=== PATIENT | female | born 1985 | race Asian ===

== ENCOUNTER 2019-03-30 10:54 | Emergency (ER) | payer BC ==
[~2019-03-30] VITALS: Ht 162 cm; Wt 63.6 kg
[2019-03-30] MEDS ORDERED: LACTATED RINGERS 1,000 ML IV ONE ×2 (11:19→12:20)
[2019-03-30] MEDS ORDERED: ONDANSETRON 4 MG/2 ML (SDV) Z0FRAN IVP ONE (11:30)
[2019-03-30 11:46] LABS: BASOPHILS % (AUTO) 0 % (0-10); EOSINOPHILS % (AUTO) 0 % (0-10); HEMATOCRIT 37 % (35-52); HEMOGLOBIN 11.8 G/DL (11.5-16.0); LYMPHOCYTES # (AUTO) 1.4 X 10^3 (1.0-4.0); LYMPHOCYTES % (AUTO) 25 % (12-44); MEAN CORPUSCULAR HEMOGLOBIN 22 PG (25-34); MEAN CORPUSCULAR HGB CONC 32 G/DL (32-36); MEAN CORPUSCULAR VOLUME 68 FL (80-99); MEAN PLATELET VOLUME 11.9 FL (7.4-10.4); MONOCYTES # (AUTO) 0.5 X 10^3 (0.0-1.0); MONOCYTES % (AUTO) 9 % (0-12); NEUTROPHILS # (AUTO) 3.6 X 10^3 (1.8-7.8); NEUTROPHILS % (AUTO) 65 % (42-75); PLATELET COUNT 222 10^3/uL (130-400); RED CELL DISTRIBUTION WIDTH 18.2 % (10.0-14.5); WHITE BLOOD COUNT 5.5 10^3/uL (4.3-11.0)
[2019-03-30 11:51] LABS: BILIRUBIN,URINE NEGATIVE (NEGATIVE); CLARITY,URINE CLEAR; COLOR,URINE BROWN; GLUCOSE, URINE (UA) NEGATIVE (NEGATIVE); KETONES,URINE NEGATIVE (NEGATIVE); LEUKOCYTE ESTERASE ,URINE NEGATIVE (NEGATIVE); NITRITE,URINE NEGATIVE (NEGATIVE); PH,URINE 6.5 (5-9); PROTEIN,URINE 2+ (NEGATIVE)
[2019-03-30 11:53] LABS: INR 0.9 (0.8-1.4); PROTHROMBIN TIME PATIENT 12.9 SEC (12.2-14.7)
[2019-03-30 12:02] LABS: BACTERIA,URINE FEW /HPF; RBC,URINE TNTC /HPF
[2019-03-30 12:03] LABS: ALANINE AMINOTRANSFERASE 12 U/L (0-55); ALBUMIN 3.8 GM/DL (3.2-4.5); ALKALINE PHOSPHATASE 30 U/L (40-136); AMYLASE 53 U/L (25-125); BILIRUBIN,TOTAL 0.2 MG/DL (0.1-1.0); BUN/CREATININE RATIO 10; CALCIUM 8.5 MG/DL (8.5-10.1); CARBON DIOXIDE 23 MMOL/L (21-32); CHLORIDE 107 MMOL/L (98-107); CREATININE SERUM 0.77 MG/DL (0.60-1.30); GFR ESTIMATED > 60; GLUCOSE 93 MG/DL (70-105); LIPASE 33 U/L (8-78); POTASSIUM 3.8 MMOL/L (3.6-5.0); SODIUM 140 MMOL/L (135-145); TOTAL PROTEIN 7.3 GM/DL (6.4-8.2)
[2019-03-30 12:22] LABS: TSH (THYROID ANALYZER) 2.19 UIU/ML (0.35-4.94)
--- NOTE | 2019-03-30 12:26 | ED General ---
General Chief Complaint: General Problems/Pain Stated Complaint: WEAKNESS Nursing Triage Note: PT PRESENTS TO ED ACCOMPANIED BY WITH COMPLAINTS OF SYNCOPAL EPISODE AND GENERALIZED WEAKNESS THIS AM. PT WENT TO [facility] AND TESTED POSITIVE FOR FLU LAST THURSDAY. Nursing Sepsis Screen: No Definite Risk Source of Information: Spouse (/MALE S.O. DOES ALL TALKING FOR PT) History of Present Illness Date Seen by Provider: Mar 30, 2019 Time Seen by Provider: 11:14 Initial Comments PT ARRIVES VIA POV FROM HOME PT STARTED GETTING SICK ON Thursday03/25/19 WITH FLU SYMPTOMS--COUGH, CONGESTION, FEVER, WEAKNESS, DECREASED APPETITE ( DAUGHTER HAD BEEN SICK WITH THE SAME SYMPTOMS A FEW DAYS BEFORE PT BEGAN GETTING SICK ) WT WAS SEEN AT [facility] ON THURSDAY FOR THIS PROBLEM AND TESTED + FOR INFLUENZA. NO RX GIVEN PT WAS OUTSIDE TREATMENT WINDOW OF 48 HOURS PT HAS HAD CONTINUED WEAKNESS, AND STATES SHE "PASSED OUT" THIS AM FOR "2-3 MINUTES" --HE CAUGHT HER AND PT HAD NO INJURIES PT STATES SHE GETS DIZZY IF SHE STANDS MORE THAN ABOUT 10 MINUTES. NO VOMITING OR DIARRHEA PT HAS HAD DECREASED INTAKE ALL WEEK--HAD JESS SOUP AND RICE YESTERDAY ONCE YESTERDAY. TODAY, SHE HAD A SIP OF WATER AND ONE SLICE OF AVOCADO PT STARTED HER MENSTRUAL CYCLE TODAY C/O ABDOMINAL PAIN AND CRAMPING SINCE STARTING MENSES TOOK 1 ADVIL THIS AM FOR ABDOMINAL CRAMPING. PCP: [facility] Allergies and Home Medications Allergies Coded Allergies: No Known Drug Allergies (Unverified , 03/30/19) Patient Home Medication List Home Medication List Reviewed: Yes Review of Systems Review of Systems Constitutional: see HPI, dizziness, fever, malaise, weakness EENTM: see HPI, nose congestion Respiratory: see HPI, cough; No short of breath, No wheezing Cardiovascular: No chest pain, No edema, No palpitations; syncope Gastrointestinal: see HPI, abdominal pain, loss of appetite Genitourinary: see HPI; No dysuria Musculoskeletal: other (BODY ACHES) Skin: no symptoms reported Psychiatric/Neurological: See HPI Hematologic/Lymphatic: No Symptoms Reported Immunological/Allergic: no symptoms reported Past Ginempd-Jrmvsk-Afgvez Hx Patient Social History Alcohol Use: Denies Use Recreational Drug Use: No Smoking Status: Never a Smoker Recent Foreign Travel: No Contact w/Someone Who Travel: No Recent Infectious Disease Expo: No Recent Hopitalizations: No Physical Abuse: No Sexual Abuse: No Mistreated: No Fear: No Seasonal Allergies Seasonal Allergies: No Past Medical History Surgeries: Yes ( X 1) Section Respiratory: No Cardiac: No Neurological: No : No Reproductive Disorders: No Genitourinary: No Gastrointestinal: No Musculoskeletal: No Endocrine: No HEENT: No Cancer: No Psychosocial: No Integumentary: No Blood Disorders: No Physical Exam Vital Signs Vital Signs - First Documented 03/30/19 11:11 Temp 37.2 Pulse 67 Resp 20 B/P (MAP) 104/69 (81) Pulse Ox 99 Capillary Refill : Less Than 3 Seconds Height, Weight, BMI Height: '" Weight: lbs. oz. kg; 24.00 BMI Method: General Appearance: No Apparent Distress, WD/WN, Other HEENT: PERRL/EOMI, TMs Normal, Normal ENT Inspection, Pharynx Normal Neck: Full Range of Motion, Normal Inspection, Non Tender, Supple Respiratory: Normal Breath Sounds, No Accessory Muscle Use, No Respiratory Distress Cardiovascular: Regular Rate, Rhythm, No Edema, No JVD, No Murmur, Normal Peripheral Pulses Gastrointestinal: Normal Bowel Sounds, No Organomegaly, No Pulsatile Mass, Soft Back: Normal Inspection, No CVA Tenderness Extremity: Normal Capillary Refill, Normal Inspection, No Pedal Edema Neurologic/Psychiatric: Alert, Oriented x3, No Motor/Sensory Deficits, cable maintainer II- XII Norm as Tested Skin: Normal Color (PT IS DARK SKINNED), Warm/Dry; No Rash Progress/Results/Core Measures Suspected Sepsis Recent Fever Within 48 Hours: Yes Infection Criteria Present: Documented Infection New/Unexplained Altered Menta: No Sepsis Screen: No Definite Risk SIRS Temperature: Pulse: 67 Respiratory Rate: 20 Laboratory Tests 03/30/19 11:25: White Blood Count 5.5 Blood Pressure 104 /69 Mean: 81 Laboratory Tests 03/30/19 11:25: Creatinine 0.77, INR Comment 0.9, Platelet Count 222, Total Bilirubin 0.2 Results/Orders Lab Results Laboratory Tests Test 03/30/19 11:25 03/30/19 11:47 Range/Units White Blood Count 5.5 4.3-11.0 10^3/uL Red Blood Count 5.35 4.35-5.85 10^6/uL Hemoglobin 11.8 11.5-16.0 G/DL Hematocrit 37 35-52 % Mean Corpuscular Volume 68 L 80-99 FL Mean Corpuscular Hemoglobin 22 L 25-34 PG Mean Corpuscular Hemoglobin Concent 32 32-36 G/DL Red Cell Distribution Width 18.2 H 10.0-14.5 % Platelet Count 222 130-400 10^3/uL Mean Platelet Volume 11.9 H 7.4-10.4 FL Neutrophils (%) (Auto) 65 42-75 % Lymphocytes (%) (Auto) 25 12-44 % Monocytes (%) (Auto) 9 0-12 % Eosinophils (%) (Auto) 0 0-10 % Basophils (%) (Auto) 0 0-10 % Neutrophils # (Auto) 3.6 1.8-7.8 X 10^3 Lymphocytes # (Auto) 1.4 1.0-4.0 X 10^3 Monocytes # (Auto) 0.5 0.0-1.0 X 10^3 Eosinophils # (Auto) 0.0 0.0-0.3 10^3/uL Basophils # (Auto) 0.0 0.0-0.1 10^3/uL Prothrombin Time 12.9 12.2-14.7 SEC INR Comment 0.9 0.8-1.4 Activated Partial Thromboplast Time 25 24-35 SEC Sodium Level 140 135-145 MMOL/L Potassium Level 3.8 3.6-5.0 MMOL/L Chloride Level 107 98-107 MMOL/L Carbon Dioxide Level 23 21-32 MMOL/L Anion Gap 10 5-14 MMOL/L Blood Urea Nitrogen 8 7-18 MG/DL Creatinine 0.77 0.60-1.30 MG/DL Estimat Glomerular Filtration Rate > 60 BUN/Creatinine Ratio 10 Glucose Level 93 70-105 MG/DL Calcium Level 8.5 8.5-10.1 MG/DL Corrected Calcium 8.7 8.5-10.1 MG/DL Magnesium Level 2.0 1.6-2.4 MG/DL Total Bilirubin 0.2 0.1-1.0 MG/DL Aspartate Amino Transf (AST/SGOT) 23 5-34 U/L Alanine Aminotransferase (ALT/SGPT) 12 0-55 U/L Alkaline Phosphatase 30 L 40-136 U/L Total Protein 7.3 6.4-8.2 GM/DL Albumin 3.8 3.2-4.5 GM/DL Amylase Level 53 25-125 U/L Lipase 33 8-78 U/L TSH [place] Testing 2.19 0.35-4.94 UIU/ML Serum Test, Qualitative NEGATIVE NEGATIVE Urine Color BROWN H Urine Clarity CLEAR Urine pH 6.5 5-9 Urine Specific [place] 1.020 1.016-1.022 Urine Protein 2+ H NEGATIVE Urine Glucose (UA) NEGATIVE NEGATIVE Urine Ketones NEGATIVE NEGATIVE Urine Nitrite NEGATIVE NEGATIVE Urine Bilirubin NEGATIVE NEGATIVE Urine Urobilinogen 0.2 < = 1.0 MG/DL Urine Leukocyte Esterase NEGATIVE NEGATIVE Urine RBC (Auto) 3+ H NEGATIVE Urine RBC TNTC H /HPF Urine WBC 2-5 /HPF Urine Squamous Epithelial Cells 2-5 /HPF Urine Crystals NONE /LPF Urine Bacteria FEW H /HPF Urine Casts NONE /LPF Urine Mucus SMALL H /LPF Urine Culture Indicated YES My Orders Orders - ANY HANSEN DO Ed Iv/Invasive Line Start (03/30/19 11:19) Urine Bedside (03/30/19 11:19) Monitor-Rhythm Ecg Trace Only (03/30/19 11:19) Amylase (03/30/19 11:19) Cbc With Automated Diff (03/30/19 11:19) Comprehensive Metabolic Panel (03/30/19 11:19) Hcg,Qualitative Serum (03/30/19 11:19) Lipase (03/30/19 11:19) Magnesium (03/30/19 11:19) Protime With Inr (03/30/19 11:19) Partial Thromboplastin Time (03/30/19 11:19) Thyroid Analyzer (03/30/19 11:19) Ua Culture If Indicated (03/30/19 11:19) Blood Culture (03/30/19 11:19) Ondansetron Injection (Zofran Injectio (03/30/19 11:30) Ed Iv/Invasive Line Start (03/30/19 11:19) Lactated Ringers (Lr 1000 Ml Iv Solution (03/30/19 11:19) Orthostatic Vital Signs (Adult (03/30/19 11:19) Urine Culture (03/30/19 11:47) Ed Iv/Invasive Line Start (03/30/19 12:20) Lactated Ringers (Lr 1000 Ml Iv Solution (03/30/19 12:20) Medications Given in ED Current Medications Medications Dose Ordered Sig/Matti Route Start Time Stop Time Status Last Admin Dose Admin Lactated Ringer's 1,000 ml @ 0 mls/hr Q0M ONCE IV 03/30/19 11:19 03/30/19 11:22 DC 03/30/19 11:31 0 MLS/HR Lactated Ringer's 1,000 ml @ 0 mls/hr Q0M ONCE IV 03/30/19 12:20 03/30/19 12:21 DC 03/30/19 12:33 0 MLS/HR Ondansetron HCl 4 mg ONCE ONCE IVP 03/30/19 11:30 03/30/19 11:31 DC 03/30/19 11:31 4 MG Vital Signs/I&O 03/30/19 03/30/19 03/30/19 11:11 13:45 14:15 Temp 37.2 36.7 Pulse 67 57 59 75 77 Resp 20 20 B/P (MAP) 104/69 (81) 97/62 (74) 93/63 95/64 (74) 94/64 (74) Pulse Ox 99 99 Capillary Refill : Less Than 3 Seconds Blood Pressure Mean: 81 Progress Note : Progress Note GIVEN IV FLUIDS--STATES SHE FEELS MUCH BETTER PT IS ABLE TO AMBULATE TO AND FROM BATHROOM ON HER OWN, WITHOUT DIFFICULTY. Departure Impression Primary Impression: Influenza Additional Impressions: Generalized weakness Volume depletion Disposition: 01 HOME, SELF-CARE Condition: Stable Departure-Patient Inst. Referrals: [facility] Patient Instructions: Flu, Adult (DC), Generalized Weakness (DC) Add. Discharge Instructions: LOTS OF CLEAR LIQUIDS--WATER, BROTH, JELLO, GATORADE BLAND DIET TYLENOL 1 GRAM / MOTRIN 800 MG 4 TIMES A DAY NEEDED FOR PAIN OR FEVER OVER THE COUNTER MEDICATIONS FOR COUGH AND CONGESTION All discharge instructions reviewed with patient and/or family. Voiced understanding. ANY HANSEN DO Mar 30, 2019 12:26
[2019-03-30 13:45] VITALS: BP_SYST 94; BP_SYST 95; BP_SYST 97; BP_DIAS 62; BP_DIAS 64
[2019-03-30 14:15] VITALS: BP 93/63
== END 2019-03-30 14:14 | disposition home or self-care (01) ==
LOC: ER 10:55
DX: J11.1 Influenza due to unidentified influenza virus with other respiratory manifestations (principal); E86.9 Volume depletion, unspecified
CPT/HCPCS: 36415; 80053; 81000; 82150; 83690; 83735; 84443; 84703; 85025; 85610; 85730; 87040; 87088; 93041

== ENCOUNTER → 2021-03-04 | Outpatient (CLI) | payer BC, OTHER ==
--- NOTE | 2021-03-04 13:31 | Diagnostic Imaging Report ---
INDICATION: survey. TECHNIQUE: Multiple real-time grayscale images were obtained over the gravid uterus. COMPARISON: None FINDINGS: There is a single live fetus in a breech presentation. heart rate was recorded at 149 bpm. Placenta is posterior and low lying. Amniotic fluid volume is normal. Cervix is 5 cm in length. kidneys, bladder and stomach are unremarkable. brain is unremarkable. There is a four-chamber heart. There is a three-vessel cord with normal insertion. spine is unremarkable. Biometrical measurements are as follows: Biparietal 5.29 cm, age 22 weeks 1 days. Head circumference 20.47 cm, age 22 weeks 5 days. Abdominal circumference 17.77 cm, age 22 weeks 5 days. Femur length 3.99 cm, age 23 weeks 0 days. Sonographic estimate age: 22 weeks 5 days. Sonographic estimated date of delivery: 07/03/2021. Estimated Weight: 527 gm (+/- 77 gm). LMP percentile: 29%. heart rate: 149 beats per minute. number: 1 of 1. IMPRESSION: Single live IUP 22 weeks 5 days gestational age. Estimated date of confinement sonographically is 07/03/2021. Dictated by: Dictated on workstation # [id number]
== END ==
LOC: RAD 12:00
PROVIDERS: ATTEND Obstetrics & Gynecology
DX: Z34.82 Encounter for supervision of other normal pregnancy, second trimester (principal); Z3A.22 22 weeks gestation of pregnancy
CPT/HCPCS: 76805

== ENCOUNTER → 2021-04-09 | Outpatient (CLI) | payer OTHER ==
--- NOTE | 2021-04-09 15:11 | Diagnostic Imaging Report ---
INDICATION: Followup low-lying placenta. TECHNIQUE: Multiple Real-time grayscale images were obtained over the gravid uterus. COMPARISON: 03/04/2021. FINDINGS: There is a single live fetus in a cephalic presentation. The heart rate was recorded at 179 BPM. The placenta is posterior. The placenta is no longer low lying in position with a placental tip to the cervix measurement of 4 cm. The cervical length is 4.5 cm. The amniotic fluid volume appears normal. IMPRESSION: No evidence of a low-lying placenta or placenta previa. Dictated by: Dictated on workstation # [id number]
== END ==
LOC: RAD 13:54
PROVIDERS: ATTEND Obstetrics & Gynecology
DX: O44.42 Low lying placenta NOS or without hemorrhage, second trimester (principal); Z3A.00 Weeks of gestation of pregnancy not specified
CPT/HCPCS: 76816

== ENCOUNTER → 2021-05-31 | Outpatient (CLI) | payer OTHER ==
--- NOTE | 2021-05-31 16:57 | Diagnostic Imaging Report ---
INDICATION: Evaluate growth, fluid volume and presentation. TECHNIQUE: Multiple real-time grayscale images were obtained over the gravid uterus. COMPARISON: 03/04/2021. FINDINGS: There is a single live fetus in a transverse presentation with head to the maternal left. Heart rate was recorded at 144 BPM. Placenta is posterior. Amniotic fluid index is 16.8 cm. Cervical length is 4 cm. Biometrical measurements are as follows: Biparietal 8.50 cm, age 34 weeks 2 days. Head circumference 32.73 cm, age 37 weeks 2 days. Abdominal circumference 32.40 cm, age 36 weeks 3 days. Femur length 6.73 cm, age 34 weeks 5 days. Sonographic estimate age: 35 weeks 5 days. Sonographic estimated date of delivery: 06/30/2021. Estimated Weight: 2755 gm (+/- 403 gm). LMP percentile: 51%. heart rate: 144 beats per minute. number: 1 of 1. IMPRESSION: Single live IUP at 35 to 36 weeks gestational age demonstrating normal interval growth when compared with prior exam. No complicating features are detected. Dictated by: Dictated on workstation # [id number]
== END ==
LOC: RAD 13:00
PROVIDERS: ATTEND Obstetrics & Gynecology
DX: O32.9XX9 Maternal care for malpresentation of fetus, unspecified, other fetus (principal); Z3A.35 35 weeks gestation of pregnancy
CPT/HCPCS: 76805

== ENCOUNTER 2021-06-12 06:55 | Outpatient (CLI) | payer OTHER ==
[~2021-06-12] VITALS: Ht 63 cm; Wt 66.0 kg
[2021-06-12 07:15] VITALS: BP 106/58
[2021-06-12 07:30] VITALS: BP 106/58
[2021-06-12 08:01] LABS: BASOPHILS # (AUTO) 0.1 10^3/uL (0.0-0.1); BASOPHILS % (AUTO) 1 % (0-10); EOSINOPHILS # (AUTO) 0.1 10^3/uL (0.0-0.3); EOSINOPHILS % (AUTO) 1 % (0-10); HEMATOCRIT 40 % (35-52); HEMOGLOBIN 12.8 g/dL (11.5-16.0); LYMPHOCYTES # (AUTO) 2.5 10^3/uL (1.0-4.0); LYMPHOCYTES % (AUTO) 19 % (12-44); MEAN CORPUSCULAR HEMOGLOBIN 24 pg (25-34); MEAN CORPUSCULAR HGB CONC 32 g/dL (32-36); MEAN CORPUSCULAR VOLUME 75 fL (80-99); MEAN PLATELET VOLUME 10.1 fL (9.0-12.2); MONOCYTES # (AUTO) 0.7 10^3/uL (0.0-1.0); MONOCYTES % (AUTO) 6 % (0-12); NEUTROPHILS # (AUTO) 9.8 10^3/uL (1.8-7.8); NEUTROPHILS % (AUTO) 74 % (42-75); PLATELET COUNT 201 10^3/uL (130-400); WHITE BLOOD COUNT 13.3 10^3/uL (4.3-11.0)
[2021-06-12 08:35] VITALS: BP 106/58
--- NOTE | 2021-06-12 12:20 | History & Physical-OB ---
OB - Chief Complaint & HPI Date/Time Date of Admission: Date of Admission: Date seen by a Provider: Jun 12, 2021 Time Seen by a Provider: 07:58 Chief Complaint/History OB-Reason for Admission/Chief: scheduled external cephalic version Hx : 2 Hx Para: 1 Expected Date of Delivery: June 30, 2021 Gestational Age in Weeks: 37 Gestational Age in Days: 3 Allergies and Home Medications Allergies Coded Allergies: No Known Drug Allergies (Unverified , 03/30/19) Patient Home Medication List Home Medication List Reviewed: Yes (PNVs, iron) No Active Prescriptions or Reported Meds OB - History Hx of Present Care: Yes Ultrasounds: Normal mid trimester US Obstetrical Complications: None Medical Complications: None Information Induced Hypertension: No Maternal Gestational Diabetes: No Hemorrhage: No Obstetrical History Hx : 2 Hx Para: 1 Hx Termination: No Hx Multiple Gestation: No Hx Ectopic : No Hx Stillbirth: No Hx Complication: No Hx Induced Hypertens: No Hx Maternal Gestational Diabet: No Hx Hemorrhage: No Delivery History Hx Dystocia: No Hx Forceps Assisted Delivery: No Hx Vacuum Extraction Assisted: No Hx Placenta Abnormality: No Hx Distress: No Hx Large For Gestational Age I: No Hx Small for Gestational Age I: No Hx Section: Yes Hx Vaginal Delivery Post C-Sec: No Hx Blood Disorders: No Adverse Rxn to Tranfusion: No Patient Past Medical History None Social History/Family History Alcohol Use: Denies Use Recreational Drug Use: No 2nd Hand Smoke Exposure: No OB - Admission Exam Physical Exam Vitals: Vital Signs 06/12/21 08:35 Temp 36.6 Pulse 76 Resp 20 B/P (MAP) 106/58 Pulse Ox 99 O2 Delivery Room Air HEENT: NCAT Lungs: Clear Abdomen: Gravid Extremities: Normal Cervical Dilatation: 1cm Effacement: 50% Station: -3 Membranes: Intact Heart Rate: 130's Accelerations: Accelerations Present Decelerations: No Decelerations Short Term Variability: Present Siderographist Variability: Average (6-25) Contractions on Admission: None Labs Laboratory Tests Test 06/12/21 07:40 Range/Units White Blood Count 13.3 H 4.3-11.0 10^3/uL Red Blood Count 5.39 H 3.80-5.11 10^6/uL Hemoglobin 12.8 11.5-16.0 g/dL Hematocrit 40 35-52 % Mean Corpuscular Volume 75 L 80-99 fL Mean Corpuscular Hemoglobin 24 L 25-34 pg Mean Corpuscular Hemoglobin Concent 32 32-36 g/dL Red Cell Distribution Width 21.7 H 10.0-14.5 % Platelet Count 201 130-400 10^3/uL Mean Platelet Volume 10.1 9.0-12.2 fL Immature Granulocyte % (Auto) 1 % Neutrophils (%) (Auto) 74 42-75 % Lymphocytes (%) (Auto) 19 12-44 % Monocytes (%) (Auto) 6 0-12 % Eosinophils (%) (Auto) 1 0-10 % Basophils (%) (Auto) 1 0-10 % Neutrophils # (Auto) 9.8 H 1.8-7.8 10^3/uL Lymphocytes # (Auto) 2.5 1.0-4.0 10^3/uL Monocytes # (Auto) 0.7 0.0-1.0 10^3/uL Eosinophils # (Auto) 0.1 0.0-0.3 10^3/uL Basophils # (Auto) 0.1 0.0-0.1 10^3/uL Immature Granulocyte # (Auto) 0.1 0.0-0.1 10^3/uL Percent Immature Platelet Fraction 6.4 0.0-7.6 % OB - Assessment/Plan/Diagnosis Assessment Assessment: other (vertex) Admission Dx malpresentation at 37.4wks Admission Status: Other (Outpt Proc) Plan Plan: Expectant Management Discharge Diagnosis Diagnosis: vertex scheduled for ECV for transverse position. Patient was admitted for outpatient procedure, had reactive NST. Bedside sono shows fetus is in the vertex position today, nml LVP. Cervical exam confirms palpation of head. Dismissed with labor precautions and routine follow-up. Jay Jay continues to desire TOLAC and risks reviewed. ANNY FAYE MD Jun 12, 2021 12:20
== END 2021-06-12 08:30 | disposition home or self-care (01) ==
LOC: WSo 06:55 → LDRP 06:57 → WSo 08:30
PROVIDERS: ATTEND Obstetrics & Gynecology
DX: Z34.90 Encounter for supervision of normal pregnancy, unspecified, unspecified trimester (principal); Z3A.00 Weeks of gestation of pregnancy not specified
CPT/HCPCS: 36415; 85025

== ENCOUNTER 2021-06-18 12:07 | Outpatient (CLI) | payer OTHER ==
[2021-06-18 12:36] LABS: BILIRUBIN,URINE NEGATIVE (NEGATIVE); CLARITY,URINE CLEAR; COLOR,URINE YELLOW; GLUCOSE, URINE (UA) NEGATIVE (NEGATIVE); KETONES,URINE NEGATIVE (NEGATIVE); LEUKOCYTE ESTERASE ,URINE 1+ (NEGATIVE); NITRITE,URINE NEGATIVE (NEGATIVE); PH,URINE 6.5 (5-9); PROTEIN,URINE NEGATIVE (NEGATIVE)
[2021-06-18 12:44] LABS: BACTERIA,URINE TRACE /HPF; RBC,URINE RARE /HPF; WBC,URINE 0-2 /HPF
[2021-06-18 13:03] VITALS: BP 113/71
--- NOTE | 2021-06-19 08:06 | Physician Query-Final Dx ---
,06/19/21 0806: Clinic Account Progress/Dx Physician Query: Please give diagnosis Please include # weeks gestation Date of Service Jun 18, 2021 at 12:07 JED HONG MD 06/19/21 0854: Clinic Account Progress/Dx DIAGNOSIS: Diagnosis False labor at 38 weeks gestation ,MarJun 19, 2021 08:06 JED HONG MD Jun 19, 2021 08:54
== END 2021-06-18 13:10 | disposition home or self-care (01) ==
LOC: WSo 12:07 → LDRP 12:07 → WSo 13:10
PROVIDERS: ATTEND Obstetrics & Gynecology
DX: O36.8130 Decreased fetal movements, third trimester, not applicable or unspecified (principal); O26.893 Other specified pregnancy related conditions, third trimester; Z3A.38 38 weeks gestation of pregnancy
CPT/HCPCS: 81000; G0463; 99212

== ENCOUNTER 2021-06-27 11:30 | Inpatient (IN) | payer OTHER ==
[2021-06-27] VITALS (37 sets, daily range): BP systolic 89–140; BP diastolic 50–74
[~2021-06-27] VITALS: Ht 158 cm; Wt 66.7 kg
--- NOTE | 2021-06-27 13:16 | OB Triage Report ---
Standard Progress Note Progress Notes/Assess & Plan Date Seen by a Provider: Jun 27, 2021 Time Seen by a Provider: 13:12 Expected Date of Delivery: July 03, 2021 Gestational Age in Weeks: 39 Gestational Age in Days: 4 LMP/JODI Comment: 06/30/2021 Progress/Assessment & Plan Bonny Flowers is a at 39w4d who presents with complaints of contractions occurring every 10-15 minutes over the course of the day. She denies LOF and VB. Reports normal movement. Of note, she has a history of primary c- section due to breech presentation; she is also AMA, receiving LDA. She also required an ECV at 36-37 wga due to breech presentation early in her . O: Vital Signs 06/27/21 11:20 Temp 36.9 Pulse 76 Resp 14 Pulse Ox 100 O2 Delivery Room Air CE: 4/80/-2 FHT: 150, moderate variability, Accels present, Decels absent TOCO: occasional contractions on monitor Bedside US: vertex presentation A/P: 36yo at 39w4d, here for r/o labor. # Will reassess in 2 hours. # Diet: Clear fluids - mainly water at this time. # Dispo: Pending reassessment. Final Diagnosis r/o labor JOSEL VILLAREAL MD Jun 27, 2021 13:16
--- NOTE | 2021-06-27 14:03 | Progress Note ---
Standard Progress Note Progress Notes/Assess & Plan Date Seen by a Provider: Jun 27, 2021 Time Seen by a Provider: 14:00 Progress/Assessment & Plan Bonny Flowers is a at 39w4d admitted for labor with cervical change from 4 to 5cm in 2 hours. She also now complains of leakage of fluid. O: Vital Signs 06/27/21 11:20 Temp 36.9 Pulse 76 Resp 14 Pulse Ox 100 O2 Delivery Room Air CE: 5/100/-2 FHT: 135 moderate variability, Accels present, Decels absent TOCO: q3-4min Bedside US: vertex presentation A/P: 36yo at 39w4d, admitted for labor. # Labor: Admission labs placed. # r/o rupture: ROM Plus sent to pharmacy. If negative, will AROM. # Pain management: Will proceed with epidural placement. # Diet: Clear fluids. # Dispo: Anticipate vaginal delivery. Final Diagnosis Spontaneous labor JOSE L VILLAREAL MD Jun 27, 2021 14:03
[2021-06-27] MEDS ORDERED: LIDOCAINE/EPI 1%-1:200,000 (XYLOCAINE) 30 ML VIAL INJ ONE (14:30)
[2021-06-27] MEDS ORDERED: D5 LR IV SOLUTION 1,000 ML IV SCH ×2 (14:30)
[2021-06-27 14:39] LABS: EOSINOPHILS % (AUTO) 0 % (0-10); LYMPHOCYTES # (AUTO) 3.4 10^3/uL (1.0-4.0)
[2021-06-27 14:40] LABS: BASOPHILS # (AUTO) 0.1 10^3/uL (0.0-0.1); BASOPHILS % (AUTO) 1 % (0-10); EOSINOPHILS # (AUTO) 0.1 10^3/uL (0.0-0.3); HEMATOCRIT 49 % (35-52); HEMOGLOBIN 15.4 g/dL (11.5-16.0); LYMPHOCYTES % (AUTO) 17 % (12-44); MEAN CORPUSCULAR HEMOGLOBIN 24 pg (25-34); MEAN CORPUSCULAR HGB CONC 32 g/dL (32-36); MEAN CORPUSCULAR VOLUME 76 fL (80-99); MONOCYTES # (AUTO) 0.9 10^3/uL (0.0-1.0); MONOCYTES % (AUTO) 4 % (0-12); NEUTROPHILS % (AUTO) 77 % (42-75); PLATELET COUNT 227 10^3/uL (130-400)
[2021-06-27] MEDS ORDERED: fentaNYL 2 mcg/ml BUPIVA 0.125 100 ML ONE (14:49)
[2021-06-27 15:28] LABS: BAND NEUTROPHILS 3 %; LYMPHOCYTES % (MANUAL) 21 %; MONOCYTES % (MANUAL) 2 %; NEUTROPHILS % (MANUAL) 74 %; WHITE BLOOD COUNT 20.7 10^3/uL (4.3-11.0)
[2021-06-27 15:29] LABS: BURR CELLS SLIGHT; ELLIPT/OVALOCYTES SLIGHT; MICROCYTOSIS SLIGHT
[2021-06-27] MEDS ORDERED: BUPIVACAINE 0.25% 10 ML (SENSORCAINE) VIAL ONE (15:30)
[2021-06-27] MEDS ORDERED: fentaNYL INJ 100 MCG/2 ML AMP ONE (15:30)
[2021-06-27] MEDS ORDERED: NALOXONE 0.4 MG/ML 1 ML (NARCAN) VIAL IV PRN ×3 (16:00→21:00)
[2021-06-27] MEDS ORDERED: diphenhydrAMINE 50 MG/ML INJ (BENADRYL) IV PRN (16:00)
[2021-06-27] MEDS ORDERED: METOCLOPRAMIDE INJ 10 MG/2 ML (REGLAN) IV PRN (16:00)
[2021-06-27] MEDS ORDERED: LACTATED RINGERS 1,000 ML IV SCH (16:00)
[2021-06-27] MEDS ORDERED: ONDANSETRON 4 MG/2 ML (SDV) Z0FRAN IV PRN (16:00)
[2021-06-27] MEDS ORDERED: EPIDURAL (fentaNYL 2 MCG/ML BUPIVA 0.125%)100 ML BAG EPI PRN (16:00)
--- NOTE | 2021-06-27 16:07 | Progress Note ---
Standard Progress Note Progress Notes/Assess & Plan Date Seen by a Provider: Jun 27, 2021 Time Seen by a Provider: 15:45 Progress/Assessment & Plan Bonny Flowers is a at 39w4d admitted for labor + SROM for clear fluid, confirmed with positive ROM Plus. O: Vital Signs: VS - Last 72 Hours, by Label 06/27/21 06/27/21 11:20 15:15 Temp 36.9 36.9 Pulse 76 76 Resp 14 14 Pulse Ox 100 100 O2 Delivery Room Air Room Air Laboratory Tests Test 06/27/21 13:42 06/27/21 14:11 Range/Units Membranes Rupture POSITIVE White Blood Count 20.7 H 4.3-11.0 10^3/uL Red Blood Count 6.36 H 3.80-5.11 10^6/uL Hemoglobin 15.4 11.5-16.0 g/dL Hematocrit 49 35-52 % Mean Corpuscular Volume 76 L 80-99 fL Mean Corpuscular Hemoglobin 24 L 25-34 pg Mean Corpuscular Hemoglobin Concent 32 32-36 g/dL Red Cell Distribution Width 20.7 H 10.0-14.5 % Platelet Count 227 130-400 10^3/uL Mean Platelet Volume 11.0 9.0-12.2 fL Immature Granulocyte % (Auto) 1 % Neutrophils (%) (Auto) 77 H 42-75 % Lymphocytes (%) (Auto) 17 12-44 % Monocytes (%) (Auto) 4 0-12 % Eosinophils (%) (Auto) 0 0-10 % Basophils (%) (Auto) 1 0-10 % Neutrophils # (Auto) 16.0 H 1.8-7.8 10^3/uL Lymphocytes # (Auto) 3.4 1.0-4.0 10^3/uL Monocytes # (Auto) 0.9 0.0-1.0 10^3/uL Eosinophils # (Auto) 0.1 0.0-0.3 10^3/uL Basophils # (Auto) 0.1 0.0-0.1 10^3/uL Immature Granulocyte # (Auto) 0.2 H 0.0-0.1 10^3/uL Neutrophils % (Manual) 74 % Lymphocytes % (Manual) 21 % Monocytes % (Manual) 2 % Band Neutrophils 3 % Percent Immature Platelet Fraction 8.2 H 0.0-7.6 % Microcytosis SLIGHT Arnie Cells SLIGHT Elliptocytes SLIGHT CE: 5/100/-2 @ 1545 FHT: 125, moderate variability, Accels present, Decels absent TOCO: q5-7min IUPC and FSE placed at 1545 A/P: 36yo at 39w4d, admitted for labor. # Labor: Will start Pitocin due to no cervical change after 2 hours. IUPC and FSE in place. # r/o rupture: Rupture confirmed via positive ROM Plus. # Pain management: Epidural in place. # Diet: Clear fluids. # Dispo: Anticipate vaginal delivery. Final Diagnosis labor JOSE L VILLAREAL MD Jun 27, 2021 16:07
[2021-06-27] MEDS ORDERED: OXYTOCIN PRE-MIX DRIP 500 ML IV SCH ×2 (16:15→21:00)
[2021-06-27] MEDS ORDERED: MINERAL OIL 30 ML OIL ONE (18:59)
[2021-06-27] MEDS ORDERED: OXYTOCIN PRE-MIX DRIP 500 ML IV ONE (19:03)
[2021-06-27] MEDS ORDERED: LIDOCAINE/EPI 2% 1:200,00 (XYLOCAINE) 10 ML VIAL ONE (19:03)
[2021-06-27] MEDS ORDERED: BENZOCAINE/MENTHOL (DERMOPLAST) 56 ML CAN TP PRN (21:00)
[2021-06-27] MEDS ORDERED: DIBUCAINE 1% OINTMENT 30 GM TUBE TOP PRN (21:00)
[2021-06-27] MEDS ORDERED: MEASLES,MUMPS,RUBELLA 1 EA INJ SQ ONE (21:00)
[2021-06-27] MEDS ORDERED: WITCH HAZEL(TUCKS) 40 EA JAR TOP PRN (21:00)
[2021-06-27] MEDS ORDERED: TETANUS,DIPTH,PERTUSS P/F (BOOSTRIX) 0.5 ML VIAL IM ONE (21:00)
--- NOTE | 2021-06-27 21:08 | OB Labor & Delivery Record ---
Vag Delivery Note Vag Delivery Note Date of Delivery: 06/27/21 Preoperative Diagnosis: Bonny Flowers is a 36yo /Para 2 / 1,Gestational Age (wks) 39 who presents in spontaneous labor with SROM for clear fluid on L&D. Postoperative Diagnosis: Same Surgeon: JOSE L VILLAREAL Almond Pan Finisher: N/A Anesthesia: Epidural Delivery Type: Vacuum Assisted Vaginal delivery Findings: Viable female , apgars 8, weight 9 Lacerations: bilateral sulcal lacerations and 2nd degree laceration Intact placenta with 3 vessel cord. No nuchal cord, body cord or shoulder dystocia Cytotec 1000 mcg placed for hemorrhage prophylaxis Estimated Blood Loss: 300 ml Complications: None Condition: Stable Description of Procedure: The patient is a 36 year old female who presented in spontaneous labor. She was admitted and informed consent was obtained. She progressed to complete dilatation and began to push. Initially she pushed for 10 minutes and the decision was made to labor down for 30 - 45 minutes. After laboring down, she began pushing once more. After 2 contractions, the decision was made to use vacuum assistance due to the presence of deep variables to the 70s with each push. She would return to a baseline in the 90s. She was then set up for delivery. Patient counseling: Indications discussed. Questions answered. The patient stat ed understanding of risks that include but are not limited to head injury and maternal tissue injury. Patient consented to operative delivery. Examination findings: - Adequate pelvis: Yes - Position of head at application: direct OA - Cervix completely dilated and effaced - Maternal size appropriate for application - Bladder empty - Anesthesia adequate - FHT: Cat II tracing Kiwi Vacuum - Vacuum reduced between pulls - Cup placement: flexion point identified, maternal tissue excluded from vacuum cup Total time of vacuum: 5 (minutes from first application to delivery) # of pulls (contractions): 4 # of pop offs: 1 The infant's head was delivered atraumatically in the OA position. Double nuchal cord was noted and reduced at the perineum. The shoulders and remainder of the 's body were then delivered without difficulty. Upon delivery, the head was held below the level of the perineum and the mouth and nares were bulb suctioned. The cord was doubly clamped and cut and the infant was handed off to the pediatric staff. An intact placenta with 3-vessel cord delivered with mild traction and there was found to be minimal bleeding. Vigorous fundal massage was performed and the fundus was found to be firm. IV oxytocin was given. Examination of the vagina and perineum revealed bilateral sulcal lacerations and a 2nd degree laceration repaired in the usual fashion with 2-0 Vicryl and 2-0 Chromic sutures. Following the repair, sponge, instrument and needle counts were correct. Mom and baby were both in stable condition in the labor suite. 1000mcg of cytotec was placed rectally for hemorrhage prophylaxis. Vitals - Labs Vital Signs - I&O Vital Signs Date Time Temp Pulse Resp B/P (MAP) Pulse Ox O2 Delivery O2 Flow Rate FiO2 06/27/21 18:01 66 91/55 (67) Room Air 06/27/21 17:48 64 98/50 (66) Room Air 06/27/21 17:32 36.4 70 99/54 (69) Room Air 06/27/21 17:19 64 98/55 (69) Room Air 06/27/21 17:02 68 100/63 (75) Room Air 06/27/21 16:47 73 95/63 (74) Room Air 06/27/21 16:31 72 105/59 (74) Room Air 06/27/21 16:15 73 100/57 (71) Room Air 06/27/21 16:14 83 104/52 (69) 99 Room Air 06/27/21 16:09 78 105/54 (71) 100 Room Air 06/27/21 16:08 103 100/54 (69) Room Air 06/27/21 16:06 87 100/57 (71) 100 Room Air 06/27/21 16:00 76 104/57 (73) 100 Room Air 06/27/21 15:59 67 107/56 (73) Room Air 06/27/21 15:58 88 100/58 (72) Room Air 06/27/21 15:55 70 92/54 (67) 99 Room Air 06/27/21 15:54 86 89/53 (65) Room Air 06/27/21 15:51 98 117/68 (84) 100 Room Air 06/27/21 15:47 104 117/61 (79) Room Air 06/27/21 15:45 99 125/67 (86) Room Air 06/27/21 15:44 85 131/64 (86) Room Air 06/27/21 15:41 74 128/68 (88) 100 Room Air 06/27/21 15:38 75 134/66 (88) 06/27/21 15:36 67 121/63 (82) 100 Room Air 06/27/21 15:32 72 109/55 (73) 06/27/21 15:15 36.9 76 14 100 Room Air 06/27/21 14:46 36.7 77 16 125/74 (91) Room Air 06/27/21 11:20 36.9 76 16 110/67 (81) 100 Room Air 06/27/21 11:20 36.9 76 14 100 Room Air Labs Laboratory Tests 06/27/21 13:42: Membranes Rupture POSITIVE 06/27/21 14:11: White Blood Count 20.7H, Red Blood Count 6.36H, Hemoglobin 15.4, Hematocrit 49, Mean Corpuscular Volume 76L, Mean Corpuscular Hemoglobin 24L, Mean Corpuscular Hemoglobin Concent 32, Red Cell Distribution Width 20.7H, Platelet Count 227, Mean Platelet Volume 11.0, Immature Granulocyte % (Auto) 1, Neutrophils (%) (Auto) 77H, Lymphocytes (%) (Auto) 17, Monocytes (%) (Auto) 4, Eosinophils (%) (Auto) 0, Basophils (%) (Auto) 1, Neutrophils # (Auto) 16.0H, Lymphocytes # (Auto) 3.4, Monocytes # (Auto) 0.9, Eosinophils # (Auto) 0.1, Basophils # (Auto) 0.1, Immature Granulocyte # (Auto) 0.2H, Neutrophils % (Manual) 74, Lymphocytes % (Manual) 21, Monocytes % (Manual) 2, Band Neutrophils 3, Percent Immature Platelet Fraction 8.2H, Microcytosis SLIGHT, [place] Cells SLIGHT, Elliptocytes SLIGHT JOSE L VILLAREAL MD Jun 27, 2021 21:08
[2021-06-27] MEDS ORDERED: CATHETER FLUSH 10 ML SYR IV SCH ×3 (22:00)
[2021-06-28 02:10] VITALS: BP 100/52
[2021-06-28] MEDS: IBUPROFEN 600 MG (MOTRIN) TAB PO SCH ×4 (03:03→22:12)
[2021-06-28] MEDS: ACETAMINOPHEN 500 MG TAB (TYLENOL) PO SCH ×3 (03:04→20:13)
[2021-06-28 05:45] LABS: BASOPHILS # (AUTO) 0.1 10^3/uL (0.0-0.1); BASOPHILS % (AUTO) 0 % (0-10); EOSINOPHILS # (AUTO) 0.1 10^3/uL (0.0-0.3); EOSINOPHILS % (AUTO) 1 % (0-10); HEMATOCRIT 34 % (35-52); LYMPHOCYTES # (AUTO) 2.6 10^3/uL (1.0-4.0); LYMPHOCYTES % (AUTO) 12 % (12-44); MEAN CORPUSCULAR HEMOGLOBIN 24 pg (25-34); MEAN CORPUSCULAR HGB CONC 32 g/dL (32-36); MEAN CORPUSCULAR VOLUME 76 fL (80-99); MONOCYTES % (AUTO) 5 % (0-12); NEUTROPHILS # (AUTO) 17.1 10^3/uL (1.8-7.8); NEUTROPHILS % (AUTO) 81 % (42-75); PLATELET COUNT 174 10^3/uL (130-400)
[2021-06-28 06:10] VITALS: BP 92/52
--- NOTE | 2021-06-28 08:02 | Anesthesia-Regional Post-Op ---
Regional Patient Condition Mental Status: Alert, Oriented x3 Circulation: Same as Pre-Op Headache: Absent Sensation: Full Recovery Motor Block: Absent Post Op Complications Complications None Follow Up Care/Instructions Patient Instructions None needed. Anesthesia/Patient Condition Patient is doing well, no complaints, stable vital signs, no apparent adverse anesthesia problems. No complications reported per nursing. [place] [facility] [place]: Yes SHOBHA CATES CRNA Jun 28, 2021 08:02
[2021-06-28] MEDS: FERROUS SULF 325 MG (IRON) TAB PO SCH (09:13)
[2021-06-28] MEDS: PRENATAL VITAMIN 1 EA TAB PO SCH (09:13)
[2021-06-28] MEDS: DOCUSATE SODIUM 100 MG (COLACE) CAP PO SCH ×2 (09:13→20:13)
--- NOTE | 2021-06-28 11:12 | Postpartum Progress Note ---
Note Note Day # 1 Subjective: Patient is without complaints. Ambulating, voiding. Tolerating a regular diet without nausea or vomiting. Normal lochia. Pain is well controlled with oral pain medications. Breast and bottlefeeding. Passing flatus. Objective: VS - Last 72 Hours, by Label 06/27/21 06/27/21 06/27/21 06/27/21 11:20 11:20 14:46 15:15 Temp 36.9 36.9 36.7 36.9 Pulse 76 76 77 76 Resp 14 16 16 14 B/P (MAP) 110/67 (81) 125/74 (91) Pulse Ox 100 100 100 O2 Delivery Room Air Room Air Room Air Room Air 06/27/21 06/27/21 06/27/21 06/27/21 15:32 15:36 15:38 15:41 Pulse 72 67 75 74 B/P (MAP) 109/55 (73) 121/63 (82) 134/66 (88) 128/68 (88) Pulse Ox 100 100 O2 Delivery Room Air Room Air 06/27/21 06/27/21 06/27/21 06/27/21 15:44 15:45 15:47 15:51 Pulse 85 99 104 98 B/P (MAP) 131/64 (86) 125/67 (86) 117/61 (79) 117/68 (84) Pulse Ox 100 O2 Delivery Room Air Room Air Room Air Room Air 06/27/21 06/27/21 06/27/21 06/27/21 15:54 15:55 15:58 15:59 Pulse 86 70 88 67 B/P (MAP) 89/53 (65) 92/54 (67) 100/58 (72) 107/56 (73) Pulse Ox 99 O2 Delivery Room Air Room Air Room Air Room Air 06/27/21 06/27/21 06/27/21 06/27/21 16:00 16:06 16:08 16:09 Pulse 76 87 103 78 B/P (MAP) 104/57 (73) 100/57 (71) 100/54 (69) 105/54 (71) Pulse Ox 100 100 100 O2 Delivery Room Air Room Air Room Air Room Air 06/27/21 06/27/21 06/27/21 06/27/21 16:14 16:15 16:31 16:47 Pulse 83 73 72 73 B/P (MAP) 104/52 (69) 100/57 (71) 105/59 (74) 95/63 (74) Pulse Ox 99 O2 Delivery Room Air Room Air Room Air Room Air 06/27/21 06/27/21 06/27/21 06/27/21 17:02 17:19 17:32 17:48 Temp 36.4 Pulse 68 64 70 64 B/P (MAP) 100/63 (75) 98/55 (69) 99/54 (69) 98/50 (66) O2 Delivery Room Air Room Air Room Air Room Air 06/27/21 06/27/21 06/27/21 06/27/21 18:01 19:15 19:30 19:45 Pulse 66 89 95 95 B/P (MAP) 91/55 (67) 137/60 (85) 107/64 (78) 107/64 (78) O2 Delivery Room Air Room Air Room Air Room Air 06/27/21 06/27/21 06/27/21 06/27/21 20:00 20:15 20:18 20:31 Pulse 77 87 Resp 18 B/P (MAP) 104/57 (73) 140/58 (85) O2 Delivery Room Air Non Rebreather Non Rebreather Room Air 06/27/21 06/27/21 06/27/21 06/27/21 21:00 21:15 21:30 21:45 Temp 36.6 36.6 36.6 37.0 Resp 18 18 18 18 B/P (MAP) 92/66 (75) O2 Delivery Room Air Room Air Room Air Room Air 06/27/21 06/27/21 06/27/21 06/28/21 22:00 22:30 22:45 02:10 Temp 36.8 36.8 Pulse 81 89 79 85 Resp 18 18 18 18 B/P (MAP) 115/57 (76) 123/58 (79) 109/55 (73) 100/52 (68) O2 Delivery Room Air Room Air Room Air Room Air 06/28/21 06:10 Temp 36.6 Pulse 78 Resp 18 B/P (MAP) 92/52 (65) Pulse Ox 98 O2 Delivery Room Air Physical Exam: General - Alert and oriented, no apparent distress Abdomen - Soft, appropriately tender to palpation, non-distended, fundus firm at umbilicus Extremities - no edema, negative Shira's bilaterally Laboratory Tests Test 06/27/21 13:42 06/27/21 14:11 06/28/21 05:22 Range/Units Membranes Rupture POSITIVE White Blood Count 20.7 H 21.0 H 4.3-11.0 10^3/uL Red Blood Count 6.36 H 4.51 3.80-5.11 10^6/uL Hemoglobin 15.4 11.0 #L 11.5-16.0 g/dL Hematocrit 49 34 L 35-52 % Mean Corpuscular Volume 76 L 76 L 80-99 fL Mean Corpuscular Hemoglobin 24 L 24 L 25-34 pg Mean Corpuscular Hemoglobin Concent 32 32 32-36 g/dL Red Cell Distribution Width 20.7 H 19.3 H 10.0-14.5 % Platelet Count 227 174 130-400 10^3/uL Mean Platelet Volume 11.0 11.0 9.0-12.2 fL Immature Granulocyte % (Auto) 1 1 % Neutrophils (%) (Auto) 77 H 81 H 42-75 % Lymphocytes (%) (Auto) 17 12 12-44 % Monocytes (%) (Auto) 4 5 0-12 % Eosinophils (%) (Auto) 0 1 0-10 % Basophils (%) (Auto) 1 0 0-10 % Neutrophils # (Auto) 16.0 H 17.1 H 1.8-7.8 10^3/uL Lymphocytes # (Auto) 3.4 2.6 1.0-4.0 10^3/uL Monocytes # (Auto) 0.9 1.0 0.0-1.0 10^3/uL Eosinophils # (Auto) 0.1 0.1 0.0-0.3 10^3/uL Basophils # (Auto) 0.1 0.1 0.0-0.1 10^3/uL Immature Granulocyte # (Auto) 0.2 H 0.2 H 0.0-0.1 10^3/uL Neutrophils % (Manual) 74 % Lymphocytes % (Manual) 21 % Monocytes % (Manual) 2 % Band Neutrophils 3 % Percent Immature Platelet Fraction 8.2 H 0.0-7.6 % Microcytosis SLIGHT [place] Cells SLIGHT Elliptocytes SLIGHT Syphilis Serology Non-Reactive Non-Reactive Assessment: Post- day # 1, status post vacuum assisted vaginal delivery due to non- reassuring status. Recovering well, hemodynamically stable Plan: Routine care. Leukocytosis: Admission WBC of 20.7 with elevation to 21 this morning. No s/s of fever, chills, nausea or vomiting. Will continue to monitor for symptoms and treat appropriately. Viable female infant. Encourage breast feeding. Encourage ambulation. Heme: preop hgb 15.4 --> 11.0. Patient was likely hemoconcentrated prior to admission. Plan for discharge tomorrow. Vitals - Labs Vital Signs - I&O Vital Signs Date Time Temp Pulse Resp B/P (MAP) Pulse Ox O2 Delivery O2 Flow Rate FiO2 06/28/21 06:10 36.6 78 18 92/52 (65) 98 Room Air 06/28/21 02:10 36.8 85 18 100/52 (68) Room Air 06/27/21 22:45 79 18 109/55 (73) Room Air 06/27/21 22:30 89 18 123/58 (79) Room Air 06/27/21 22:00 36.8 81 18 115/57 (76) Room Air 06/27/21 21:45 37.0 18 92/66 (75) Room Air 06/27/21 21:30 36.6 18 Room Air 06/27/21 21:15 36.6 18 Room Air 06/27/21 21:00 36.6 18 Room Air 06/27/21 20:31 87 18 140/58 (85) Room Air 06/27/21 20:18 Non Rebreather 06/27/21 20:15 Non Rebreather 06/27/21 20:00 77 104/57 (73) Room Air 06/27/21 19:45 95 107/64 (78) Room Air 06/27/21 19:30 95 107/64 (78) Room Air 06/27/21 19:15 89 137/60 (85) Room Air 06/27/21 18:01 66 91/55 (67) Room Air 06/27/21 17:48 64 98/50 (66) Room Air 06/27/21 17:32 36.4 70 99/54 (69) Room Air 06/27/21 17:19 64 98/55 (69) Room Air 06/27/21 17:02 68 100/63 (75) Room Air 06/27/21 16:47 73 95/63 (74) Room Air 06/27/21 16:31 72 105/59 (74) Room Air 06/27/21 16:15 73 100/57 (71) Room Air 06/27/21 16:14 83 104/52 (69) 99 Room Air 06/27/21 16:09 78 105/54 (71) 100 Room Air 06/27/21 16:08 103 100/54 (69) Room Air 06/27/21 16:06 87 100/57 (71) 100 Room Air 06/27/21 16:00 76 104/57 (73) 100 Room Air 06/27/21 15:59 67 107/56 (73) Room Air 06/27/21 15:58 88 100/58 (72) Room Air 06/27/21 15:55 70 92/54 (67) 99 Room Air 06/27/21 15:54 86 89/53 (65) Room Air 06/27/21 15:51 98 117/68 (84) 100 Room Air 06/27/21 15:47 104 117/61 (79) Room Air 06/27/21 15:45 99 125/67 (86) Room Air 06/27/21 15:44 85 131/64 (86) Room Air 06/27/21 15:41 74 128/68 (88) 100 Room Air 06/27/21 15:38 75 134/66 (88) 06/27/21 15:36 67 121/63 (82) 100 Room Air 06/27/21 15:32 72 109/55 (73) 06/27/21 15:15 36.9 76 14 100 Room Air 06/27/21 14:46 36.7 77 16 125/74 (91) Room Air 06/27/21 11:20 36.9 76 16 110/67 (81) 100 Room Air 06/27/21 11:20 36.9 76 14 100 Room Air I & O 06/28/21 07:00 Intake Total 1000 ml Balance 1000 ml Labs Laboratory Tests 06/27/21 13:42: Membranes Rupture POSITIVE 06/27/21 14:11: White Blood Count 20.7H, Red Blood Count 6.36H, Hemoglobin 15.4, Hematocrit 49, Mean Corpuscular Volume 76L, Mean Corpuscular Hemoglobin 24L, Mean Corpuscular Hemoglobin Concent 32, Red Cell Distribution Width 20.7H, Platelet Count 227, Mean Platelet Volume 11.0, Immature Granulocyte % (Auto) 1, Neutrophils (%) (Auto) 77H, Lymphocytes (%) (Auto) 17, Monocytes (%) (Auto) 4, Eosinophils (%) (Auto) 0, Basophils (%) (Auto) 1, Neutrophils # (Auto) 16.0H, Lymphocytes # (Auto) 3.4, Monocytes # (Auto) 0.9, Eosinophils # (Auto) 0.1, Basophils # (Auto) 0.1, Immature Granulocyte # (Auto) 0.2H, Neutrophils % (Manual) 74, Lymphocytes % (Manual) 21, Monocytes % (Manual) 2, Band Neutrophils 3, Percent Immature Platelet Fraction 8.2H, Microcytosis SLIGHT, [place] Cells SLIGHT, Elliptocytes SLIGHT, Syphilis Serology Non-Reactive 06/28/21 05:22: White Blood Count 21.0H, Red Blood Count 4.51, Hemoglobin 11.0#L, Hematocrit 34L , Mean Corpuscular Volume 76L, Mean Corpuscular Hemoglobin 24L, Mean Corpuscular Hemoglobin Concent 32, Red Cell Distribution Width 19.3H, Platelet Count 174, Mean Platelet Volume 11.0, Immature Granulocyte % (Auto) 1, Neutrophils (%) (Auto) 81H, Lymphocytes (%) (Auto) 12, Monocytes (%) (Auto) 5, Eosinophils (%) (Auto) 1, Basophils (%) (Auto) 0, Neutrophils # (Auto) 17.1H, Lymphocytes # (Auto) 2.6, Monocytes # (Auto) 1.0, Eosinophils # (Auto) 0.1, Basophils # (Auto) 0.1, Immature Granulocyte # (Auto) 0.2H JOSE L VILLAREAL MD Jun 28, 2021 11:12
[2021-06-28 11:22] VITALS: BP 103/54
[2021-06-28 18:12] VITALS: BP 104/55
[2021-06-28 20:10] VITALS: BP 107/56
[2021-06-29] MEDS: ACETAMINOPHEN 500 MG TAB (TYLENOL) PO SCH ×2 (04:27→12:00)
[2021-06-29] MEDS: IBUPROFEN 600 MG (MOTRIN) TAB PO SCH ×2 (04:27→10:18)
[2021-06-29 04:28] VITALS: BP 94/56
[2021-06-29 05:24] LABS: BASOPHILS # (AUTO) 0.1 10^3/uL (0.0-0.1); BASOPHILS % (AUTO) 1 % (0-10); EOSINOPHILS # (AUTO) 0.2 10^3/uL (0.0-0.3); EOSINOPHILS % (AUTO) 1 % (0-10); HEMATOCRIT 34 % (35-52); HEMOGLOBIN 10.6 g/dL (11.5-16.0); LYMPHOCYTES # (AUTO) 3.7 10^3/uL (1.0-4.0); LYMPHOCYTES % (AUTO) 20 % (12-44); MEAN CORPUSCULAR HEMOGLOBIN 24 pg (25-34); MEAN CORPUSCULAR HGB CONC 31 g/dL (32-36); MEAN CORPUSCULAR VOLUME 77 fL (80-99); MEAN PLATELET VOLUME 10.6 fL (9.0-12.2); MONOCYTES % (AUTO) 6 % (0-12); NEUTROPHILS # (AUTO) 13.5 10^3/uL (1.8-7.8); NEUTROPHILS % (AUTO) 72 % (42-75); PLATELET COUNT 195 10^3/uL (130-400); WHITE BLOOD COUNT 18.7 10^3/uL (4.3-11.0)
--- NOTE | 2021-06-29 10:12 | Discharge Inst-Simple/Standard ---
Discharge Inst-Standard Reconcile Patient Problems Problems Reviewed?: Yes Discharge Medications New, Converted or Re-Newed RX: Transmitted to Pharmacy Patient Instructions/Follow Up Plan of Care/Instructions/FU: Follow-up in office in 6 weeks for examination Activity as Tolerated: Yes Discharge Diet: No Restrictions JOSE L VILLAREAL MD Jun 29, 2021 10:12
[2021-06-29] MEDS ORDERED: IBUP-844 PO (10:14)
[2021-06-29] MEDS ORDERED: DOCU100C37 PO (10:14)
[2021-06-29] MEDS ORDERED: FERR325T24 PO (10:14)
--- NOTE | 2021-06-29 10:17 | Postpartum Progress Note ---
Note Note Day # 2 Subjective: Patient is without complaints. Ambulating, voiding. Tolerating a regular diet without nausea or vomiting. Normal lochia. Pain is well controlled with oral pain medications. Breast and bottlefeeding. Passing flatus. Anticipates discharge home today. Objective: VS - Last 72 Hours, by Label 06/27/21 06/27/21 06/27/21 06/27/21 11:20 11:20 14:46 15:15 Temp 36.9 36.9 36.7 36.9 Pulse 76 76 77 76 Resp 14 16 16 14 B/P (MAP) 110/67 (81) 125/74 (91) Pulse Ox 100 100 100 O2 Delivery Room Air Room Air Room Air Room Air 06/27/21 06/27/21 06/27/21 06/27/21 15:32 15:36 15:38 15:41 Pulse 72 67 75 74 B/P (MAP) 109/55 (73) 121/63 (82) 134/66 (88) 128/68 (88) Pulse Ox 100 100 O2 Delivery Room Air Room Air 06/27/21 06/27/21 06/27/21 06/27/21 15:44 15:45 15:47 15:51 Pulse 85 99 104 98 B/P (MAP) 131/64 (86) 125/67 (86) 117/61 (79) 117/68 (84) Pulse Ox 100 O2 Delivery Room Air Room Air Room Air Room Air 06/27/21 06/27/21 06/27/21 06/27/21 15:54 15:55 15:58 15:59 Pulse 86 70 88 67 B/P (MAP) 89/53 (65) 92/54 (67) 100/58 (72) 107/56 (73) Pulse Ox 99 O2 Delivery Room Air Room Air Room Air Room Air 06/27/21 06/27/21 06/27/21 06/27/21 16:00 16:06 16:08 16:09 Pulse 76 87 103 78 B/P (MAP) 104/57 (73) 100/57 (71) 100/54 (69) 105/54 (71) Pulse Ox 100 100 100 O2 Delivery Room Air Room Air Room Air Room Air 06/27/21 06/27/21 06/27/21 06/27/21 16:14 16:15 16:31 16:47 Pulse 83 73 72 73 B/P (MAP) 104/52 (69) 100/57 (71) 105/59 (74) 95/63 (74) Pulse Ox 99 O2 Delivery Room Air Room Air Room Air Room Air 06/27/21 06/27/21 06/27/21 06/27/21 17:02 17:19 17:32 17:48 Temp 36.4 Pulse 68 64 70 64 B/P (MAP) 100/63 (75) 98/55 (69) 99/54 (69) 98/50 (66) O2 Delivery Room Air Room Air Room Air Room Air 06/27/21 06/27/21 06/27/21 06/27/21 18:01 19:15 19:30 19:45 Pulse 66 89 95 95 B/P (MAP) 91/55 (67) 137/60 (85) 107/64 (78) 107/64 (78) O2 Delivery Room Air Room Air Room Air Room Air 06/27/21 06/27/21 06/27/21 06/27/21 20:00 20:15 20:18 20:31 Pulse 77 87 Resp 18 B/P (MAP) 104/57 (73) 140/58 (85) O2 Delivery Room Air Non Rebreather Non Rebreather Room Air 06/27/21 06/27/21 06/27/21 06/27/21 21:00 21:15 21:30 21:45 Temp 36.6 36.6 36.6 37.0 Resp 18 18 18 18 B/P (MAP) 92/66 (75) O2 Delivery Room Air Room Air Room Air Room Air 06/27/21 06/27/21 06/27/21 06/28/21 22:00 22:30 22:45 02:10 Temp 36.8 36.8 Pulse 81 89 79 85 Resp 18 18 18 18 B/P (MAP) 115/57 (76) 123/58 (79) 109/55 (73) 100/52 (68) O2 Delivery Room Air Room Air Room Air Room Air 06/28/21 06/28/21 06/28/21 06/28/21 06:10 11:22 18:12 20:10 Temp 36.6 36.4 36.6 37.0 Pulse 78 78 71 80 Resp 18 16 16 16 B/P (MAP) 92/52 (65) 103/54 (70) 104/55 (71) 107/56 (73) Pulse Ox 98 96 99 99 O2 Delivery Room Air Room Air Room Air Room Air 06/29/21 04:28 Temp 36.8 Pulse 67 Resp 16 B/P (MAP) 94/56 (69) Pulse Ox 97 O2 Delivery Room Air Laboratory Tests Test 06/29/21 05:00 Range/Units White Blood Count 18.7 H 4.3-11.0 10^3/uL Red Blood Count 4.41 3.80-5.11 10^6/uL Hemoglobin 10.6 L 11.5-16.0 g/dL Hematocrit 34 L 35-52 % Mean Corpuscular Volume 77 L 80-99 fL Mean Corpuscular Hemoglobin 24 L 25-34 pg Mean Corpuscular Hemoglobin Concent 31 L 32-36 g/dL Red Cell Distribution Width 19.6 H 10.0-14.5 % Platelet Count 195 130-400 10^3/uL Mean Platelet Volume 10.6 9.0-12.2 fL Immature Granulocyte % (Auto) 1 % Neutrophils (%) (Auto) 72 42-75 % Lymphocytes (%) (Auto) 20 12-44 % Monocytes (%) (Auto) 6 0-12 % Eosinophils (%) (Auto) 1 0-10 % Basophils (%) (Auto) 1 0-10 % Neutrophils # (Auto) 13.5 H 1.8-7.8 10^3/uL Lymphocytes # (Auto) 3.7 1.0-4.0 10^3/uL Monocytes # (Auto) 1.0 0.0-1.0 10^3/uL Eosinophils # (Auto) 0.2 0.0-0.3 10^3/uL Basophils # (Auto) 0.1 0.0-0.1 10^3/uL Immature Granulocyte # (Auto) 0.1 0.0-0.1 10^3/uL Physical Exam: General - Alert and oriented, no apparent distress Abdomen - Soft, appropriately tender to palpation, non-distended, fundus firm at umbilicus Extremities - no edema, negative Shira's bilaterally Assessment: Post- day # 2, status post vacuum assisted vaginal delivery due to non-reassuring status. Recovering well, hemodynamically stable Plan: Routine care. Leukocytosis: Patient noted to have a leukocytosis of 20 then 21 after delivery with symptoms of infection. AM WBC improved at 18. Reassured that leukocytosis is improving. Will plan for discharge. Viable female infant. Encourage breast feeding. DVT ppx: Encourage ambulation. Heme: preop hgb 15.4 --> 11.0 --> 10.6. Ferrous sulfate supplementation. Plan for discharge home today with plans for follow-up in 6 weeks for her appointment. Vitals - Labs Vital Signs - I&O Vital Signs Date Time Temp Pulse Resp B/P (MAP) Pulse Ox O2 Delivery O2 Flow Rate FiO2 06/29/21 04:28 36.8 67 16 94/56 (69) 97 Room Air 06/28/21 20:10 37.0 80 16 107/56 (73) 99 Room Air 06/28/21 18:12 36.6 71 16 104/55 (71) 99 Room Air 06/28/21 11:22 36.4 78 16 103/54 (70) 96 Room Air Labs Laboratory Tests 06/29/21 05:00: White Blood Count 18.7H, Red Blood Count 4.41, Hemoglobin 10.6L, Hematocrit 34L, Mean Corpuscular Volume 77L, Mean Corpuscular Hemoglobin 24L, Mean Corpuscular Hemoglobin Concent 31L, Red Cell Distribution Width 19.6H, Platelet Count 195, Mean Platelet Volume 10.6, Immature Granulocyte % (Auto) 1, Neutrophils (%) (Auto) 72, Lymphocytes (%) (Auto) 20, Monocytes (%) (Auto) 6, Eosinophils (%) (Auto) 1, Basophils (%) (Auto) 1, Neutrophils # (Auto) 13.5H, Lymphocytes # (Au to) 3.7, Monocytes # (Auto) 1.0, Eosinophils # (Auto) 0.2, Basophils # (Auto) 0.1, Immature Granulocyte # (Auto) 0.1 JOSE L VILLAREAL MD Jun 29, 2021 10:17
[2021-06-29] MEDS: FERROUS SULF 325 MG (IRON) TAB PO SCH (10:18)
[2021-06-29] MEDS: DOCUSATE SODIUM 100 MG (COLACE) CAP PO SCH (10:18)
[2021-06-29] MEDS: PRENATAL VITAMIN 1 EA TAB PO SCH (10:18)
[2021-06-29 10:23] VITALS: BP 108/65
== END 2021-06-29 14:05 | disposition home or self-care (01) | DRG 806 ==
LOC: WSo 11:30 → LDRP 11:31 → WS 17:11 → LDRP 17:11
PROVIDERS: ADMIT Obstetrics & Gynecology; ATTEND Obstetrics & Gynecology
PROC: 10D07Z6 Extraction of Products of Conception, Vacuum, Via Natural or Artificial Opening (ICD-10-PCS; principal; 2021-06-27)
PROC: 0KQM0ZZ Repair Perineum Muscle, Open Approach (ICD-10-PCS; 2021-06-27)
PROC: 0UQMXZZ Repair Vulva, External Approach (ICD-10-PCS; 2021-06-27)
DX: O76 Abnormality in fetal heart rate and rhythm complicating labor and delivery (principal); O99.13 Other diseases of the blood and blood-forming organs and certain disorders involving the immune mechanism complicating the puerperium; Z37.0 Single live birth; O70.1 Second degree perineal laceration during delivery; Z3A.37 37 weeks gestation of pregnancy; O71.89 Other specified obstetric trauma; D72.829 Elevated white blood cell count, unspecified
CPT/HCPCS: 36415; 84112; 85007; 85025; 85027; 86780; 86850; 86900; 86901; 99212